=== PATIENT | male | born 1970 | race Caucasian/White ===

== ENCOUNTER 2016-11-04 15:54 | Emergency (ER) | payer BC ==
[2016-11-04] VITALS (7 sets, daily range): BP systolic 117–134; BP diastolic 58–100; PULSE 99–162; RESP 18–20; TEMP 97.8; O2SAT 98–99
[~2016-11-04] VITALS: Ht 172.7 cm; Wt 82.0 kg
[~2016-11-04 15:54] MED LIST: APIX5 PO; PROP1TAB PO
--- NOTE | 2016-11-04 16:10 | PD ---
HPI . rapid heart rate Chief Complaint: rapid heart rate Time Seen by Provider: 16:10 Travel History International Travel<30 days: No Contact w/Intl Traveler<30days: No Traveled to known affect area: No History of Present Illness HPI 45-year-old male with history of A. fib here sent in by his primary care provider secondary rapid heart rate. Patient will have his primary care office when they noticed his heart rate was running in the 160 range. Patient tells me that he feels perfectly fine and has no complaints. Patient does have a significant medical history of A. fib in the past. Apparently he has seen Dr. Escobar and was told to continue living his life without medication restriction. Patient tells me that he takes aspirin daily and has diltiazem that he uses on a when necessary basis. Apparently in the past he had a pericardial effusion and was supposed to have a pericardial window, however there was some issues and it was done and was not functioning properly. He was then subsequently sent to [facility] and was told by a specialist there that he had some type of virus causing his condition. The specialist at [place] and his retail services professional both agreed that further workup and treatment was not necessary. He has been doing relatively well for years. Today he had a f/u at his PCP office and was told his heart rate was very elevated. He had no complaints and felt good, but decided to come in. He admits to using some type of caffeine supplement for exercise purposes for the past several days, but had not taken a dose for about 3 days. He denies any chest pain, palpitations, shortness of breath, nausea, vomiting or diaphoresis. PFSH Past Medical History Heart Rhythm Problems: Yes (AFIB- ABLATION DONE 11/22/2012) Cancer: Yes ([facility] LYMPHOMA 2002) Cardiovascular Problems: Yes (HX AFIB, CARDIAC ABLATION 2012) High Cholesterol: No Chemotherapy: Yes (FOR SIX MONTHS) Chest Pain: No Congestive Heart Failure: No Diabetes: No Endocrine: No Gastrointestinal Disorders: No Genitourinary: No Hepatitis: No Hiatal Hernia: No Hypertension: Yes Immune Disorder: No Kidney Stones: Yes (2012) Musculoskeletal: No Neurologic: No Psychiatric: No Reproductive: No Respiratory: No Radiation Therapy: Yes (6 MONTHS) Thyroid Disease: No Past Surgical History AICD: No Cardiac Surgery: Yes (ABLATION) Joint Replacement: No Pacemaker: No Social History Tobacco Use: No Substance Use: No Allergies-Medications (Allergen,Severity, Reaction): Coded Allergies: No Known Allergies (Unverified , 06/05/14) Reported Meds & Prescriptions Reported Meds & Active Scripts Active Diltiazem (Diltiazem HCl) 120 Mg Tab 120 Mg PO DAILY Reported Finasteride 5 Mg Tab 5 Mg PO DAILY Do not crush. Aspirin 81 Mg Chew 81 Mg CHEW DAILY Review of Systems General / Constitutional: No: Fever Eyes: No: Visual changes HENT: No: Headaches Cardiovascular: No: Chest Pain or Discomfort Respiratory: No: Shortness of Breath Gastrointestinal: No: Abdominal Pain Genitourinary: No: Dysuria Musculoskeletal: No: Pain Skin: No Rash Neurologic: No: Weakness Psychiatric: No: Depression Endocrine: No: Polydipsia Hematologic/Lymphatic: No: Easy Bruising Physical Exam Narrative GENERAL: AAO x 3, no acute distress, Well-nourished, well-developed patient. SKIN: Warm and dry. No visible rashes or bruising. HEAD: Normocephalic and atraumatic. EYES: No scleral icterus. No injection or drainage. EOM intact, PERRLA ENT: No nasal drainage noted. Mucous membranes pink. Airway patent. NECK: Supple, trachea midline. No JVD. CARDIOVASCULAR: Irregular heartbeat on exam, tachycardic RESPIRATORY: Breath sounds equal bilaterally. No accessory muscle use. No rhonchi or rales. GASTROINTESTINAL: Abdomen soft, non-tender, nondistended. EXTREMITIES: No cyanosis or edema. BACK: Nontender without obvious deformity. No CVA tenderness. NEURO: CN II-12 intact, arcgis developer strength normal b/l, UE and LE 5/5, no focal deficits PSYCH: AAO x 3, normal affect. Data Data Last Documented VS Vital Signs Date Time Temp Pulse Resp B/P Pulse Ox O2 Delivery O2 Flow Rate FiO2 11/04/16 18:00 109 20 117/61 99 Room Air 11/04/16 15:59 97.8 Orders Iv Access Insert/Monitor (11/04/16 16:23) Ecg Monitoring (11/04/16 16:23) Oximetry (11/04/16 16:23) Oxygen Administration (11/04/16 16:23) Sodium Chloride 0.9% Flush (Ns Flush) (11/04/16 16:30) Ct Thorax/ Chest W Iv Contrast (11/04/16 ) Diltiazem Inj (Cardizem Inj) (11/04/16 16:30) Cbc No Diff, Includes Plts (11/04/16 16:25) Basic Metabolic Panel (Bmp) (11/04/16 16:25) Sodium Chlor 0.9% 1000 Ml Inj (Ns 1000 M (11/04/16 17:30) Diltiazem Inj (Cardizem Inj) (11/04/16 17:30) Electrocardiogram (11/04/16 16:11) Iohexol 350 Inj (Omnipaque 350 Inj) (11/04/16 18:40) Labs Laboratory Tests Test 11/04/16 16:30 White Blood Count 12.6 TH/MM3 Red Blood Count 4.76 MIL/MM3 Hemoglobin 15.2 GM/DL Hematocrit 44.1 % Mean Corpuscular Volume 92.8 FL Mean Corpuscular Hemoglobin 31.9 PG Mean Corpuscular Hemoglobin 34.4 % Concent Red Cell Distribution Width 14.4 % Platelet Count 202 TH/MM3 Mean Platelet Volume 8.7 FL Sodium Level 138 MEQ/L Potassium Level 4.1 MEQ/L Chloride Level 102 MEQ/L Carbon Dioxide Level 27.3 MEQ/L Anion Gap 9 MEQ/L Blood Urea Nitrogen 16 MG/DL Creatinine 1.06 MG/DL Estimat Glomerular Filtration 76 ML/MIN Rate Random Glucose 88 MG/DL Calcium Level 9.0 MG/DL MDM Medical Decision Making Medical Screen Exam Complete: Yes Emergency Medical Condition: Yes Medical Record Reviewed: Yes Differential Diagnosis a fib, a flutter, pericardial effusion, Narrative Course 45-year-old male sent by his primary care provider for rapid heart rate. Patient is totally asymptomatic and feels well. Exam was done and the only abnormality is irregular heart beat on exam. Case was discussed with Dr. Driscoll. CT of the chest ordered to check for pericardial effusion. Patient does not have chest pain, so we will hold off on any CE. He was given Cardizem bolus in the ED and his heart rate now 101 on monitor. 1719: Patient HR still 110-130; bp slightly low. IVF and [address] Driscoll. Patient remained asymptomatic the entire time. He was also evaluated by Dr. Driscoll. All workup was reviewed. (Labs, ekg and CT) Patient encouraged to take his diltiazem daily. I've also instructed him to follow up with his cardiology as soon as possible. Laboratory Tests Test 11/04/16 16:30 White Blood Count 12.6 TH/MM3 Red Blood Count 4.76 MIL/MM3 Hemoglobin 15.2 GM/DL Hematocrit 44.1 % Mean Corpuscular Volume 92.8 FL Mean Corpuscular Hemoglobin 31.9 PG Mean Corpuscular Hemoglobin 34.4 % Concent Red Cell Distribution Width 14.4 % Platelet Count 202 TH/MM3 Mean Platelet Volume 8.7 FL Sodium Level 138 MEQ/L Potassium Level 4.1 MEQ/L Chloride Level 102 MEQ/L Carbon Dioxide Level 27.3 MEQ/L Anion Gap 9 MEQ/L Blood Urea Nitrogen 16 MG/DL Creatinine 1.06 MG/DL Estimat Glomerular Filtration 76 ML/MIN Rate Random Glucose 88 MG/DL Calcium Level 9.0 MG/DL Patient verbalized understanding of instructions, questions were answered, and thanked me for their care. I advised them if their condition worsens, please return to the nearest emergency room for further care. Diagnosis Primary Impression: Afib Qualified Code: I48.2 - Chronic atrial fibrillation Patient Instructions: General Instructions Additional Instructions: Resume taking your diltiazem daily. Follow-up with her retail services professional as we discussed. Please return to emergency department if your symptoms return or worsen. Follow up with your primary care provider. Take medications as prescribed. Med/Other Pt SpecificInfo: Prescription(s) given Scripts Diltiazem 120 Mg Foh900 Mg PO DAILY #30 TAB Ref 0 Prov:Charlie Driscoll MD 11/04/16 Disposition: 01 DISCHARGE HOME Condition: Stable Rosario Gallego Nov 04, 2016 16:10
[2016-11-04] MEDS ORDERED: ASPI81CH CHEW (16:16)
[2016-11-04] MEDS ORDERED: FINA5TAB2 PO (16:16)
[2016-11-04] MEDS ORDERED: DILT120T PO ×2 (16:16→19:03)
[2016-11-04] MEDS ORDERED: DILTIAZEM HCL 25 MG/5 ML VIAL IV PUSH ONE (16:30)
[2016-11-04] MEDS ORDERED: SODIUM CHLORIDE 0.9% FLUSH 10 ML FLUSH IVF PRN (16:30)
[2016-11-04 17:04] LABS: HEMATOCRIT 44.1 % (39.0-51.0); MEAN CELL VOLUME 92.8 FL (80.0-100.0); MEAN CORPUSCULAR HEMOGLOBIN 31.9 PG (27.0-34.0); MEAN CORPUSCULAR HGB CONC 34.4 % (32.0-36.0); PLATELET COUNT 202 TH/MM3 (150-450); RED BLOOD COUNT 4.76 MIL/MM3 (4.50-5.90); RED CELL DISTRIBUTION WIDTH 14.4 % (11.6-17.2); REVIEW FLAG FINAL; WHITE BLOOD COUNT 12.6 TH/MM3 (4.0-11.0)
[2016-11-04] MEDS ORDERED: SODIUM CHLOR 0.9% 1000 ML INJ 1,000 ML IV ONE (17:30)
[2016-11-04] MEDS ORDERED: DILTIAZEM HCL 25 MG/5 ML VIAL IV ONE (17:30)
[2016-11-04 17:32] LABS: BICARBONATE 27.3 MEQ/L (21.0-32.0); POTASSIUM 4.1 MEQ/L (3.5-5.1)
[2016-11-04] MEDS ORDERED: IOHEXOL 350 MG/ML 10 ML VIAL (for RAD DIAG) IV ONE (18:40)
--- NOTE | 2016-11-04 19:00 | RADRPT ---
EXAM DATE/TIME: 11/04/2016 18:31 [facility] COMPARISON: No previous studies available for comparison. INDICATIONS : Evaluate for pleural effusion. IV CONTRAST: 70 cc Omnipaque 350 (iohexol) IV RADIATION DOSE: 5.47 CTDIvol (mGy) MEDICAL HISTORY : Cardiovascular disease. Hypertension. Lymphoma. SURGICAL HISTORY : None. ENCOUNTER: Initial ACUITY: 1 day PAIN SCALE: 0/10 LOCATION: Right chest TECHNIQUE: Volumetric scanning of the chest was performed. Using automated exposure control and adjustment of t he mA and/or kV according to patient size, radiation dose was kept as low as reasonably achievable to obtain optimal diagnostic quality images. DICOM format image data is available electronically for review and comparison. Follow-up recommendations for incidentally detected pulmonary nodules are based at a minimum on nodul e size and patient risk factors according to Fleischner Society Guidelines. FINDINGS: There is patchy left apical lung opacity and pleural thickening which is probably related to scarring . There is elevation of the right hemidiaphragm, possibly diaphragmatic paresis or paralysis. No pleu ral effusion or significant pericardial effusion. There is no hilar, mediastinal or axillary adenopat hy. No acute findings in the upper abdomen. No acute bony abnormalities. CONCLUSION: 1. Elevated right hemidiaphragm characteristic of diaphragmatic paresis or paralysis. 2. Left apical lung scarring and pleural thickening. 3. No pleuropericardial effusion. Jon Rivera MD on November 04, 2016 at 18:51 Board Certified Radiologist. This report was verified electronically.
--- NOTE | 2016-11-05 15:02 | EKG ---
Date Performed: 11/04/2016 Time Performed: 16:11:02 PTAGE: 45 years EKG: ATRIAL FLUTTER/TACHYCARDIA WITH RAPID VENTRICULAR RESPONSE NONSPECIFIC T-WAVE ABNORMALITY P atient is no longer in Sinus rhythm when compared to previous Tracing. ABNORMAL ECG PREVIOUS TRACING : 06/05/2014 11.22 DOCTOR: Austin Shields Interpretating Date/Time 11/05/2016 15:01:10
== END 2016-11-04 19:34 | disposition home or self-care (01) ==
LOC: NEPE 15:54
DX: I48.2 Chronic atrial fibrillation (principal); I10 Essential (primary) hypertension; I25.10 Atherosclerotic heart disease of native coronary artery without angina pectoris; Z79.82 Long term (current) use of aspirin; Z85.71 Personal history of Hodgkin lymphoma; Z87.442 Personal history of urinary calculi
CPT/HCPCS: 71260; 80048; 85027; 93005; 96361; 96374; 96376; 99285; J7030; Q9967